=== PATIENT | female | born 1985 | race Hispanic/Latino ===

== ENCOUNTER 2016-07-25 11:26 | Inpatient (IN) | payer SELFPAY ==
[2016-07-25 11:32] VITALS: BMI 20.7
== END 2016-07-25 12:04 | disposition home or self-care (01) | DRG 467 ==
LOC: C.3T 11:26
PROVIDERS: ADMIT Internal Medicine; ATTEND Internal Medicine
DX: Z02.89 Encounter for other administrative examinations (principal)